=== PATIENT | female | born 1975 | race Caucasian/White ===

== ENCOUNTER 2020-03-28 13:46 | Emergency (ER) | payer OTHER ==
[~2020-03-28] VITALS: Ht 152.4 cm; Wt 68.9 kg
[~2020-03-28 13:46] MED LIST: [UNRECOGNIZED DRUG - REMARK]
--- NOTE | 2020-03-28 13:50 | NUR ---
PT TAKEN TO BED 11.
[2020-03-28 13:53] VITALS: BP 124/75
--- NOTE | 2020-03-28 13:59 | NUR ---
44 Y/O FEMALE C/O LEFT BREAST PAIN BELOW NIPPLE THAT BEGAN 3 DAYS AGO. DENIES ANY RECENT INJURY OR TRAUMA. PT STATES PAIN IS LOCALIZED RIGHT BELOW NIPPLE. DENIES ANY FEVER/ CHILLS/ N/V/D. NO PMH
[2020-03-28 14:43] VITALS: BP 124/75
== END 2020-03-28 14:43 | disposition home or self-care (01) ==
LOC: MED 13:46
DX: N63.0 Unspecified lump in unspecified breast (principal); Z79.899 Other long term (current) drug therapy; Z91.010 Allergy to peanuts
CPT/HCPCS: 81025; 99282

== ENCOUNTER 2021-06-12 08:32 | Day surgery (SDC) | payer OTHER ==
[~2021-06-12] VITALS: Ht 152.4 cm; Wt 70.3 kg
[2021-06-12] MEDS ORDERED: fentaNYL citrate 0.05 MG/ML VIAL ONE (09:08)
[2021-06-12] MEDS ORDERED: LIDOCAINE 2% 100 MG/5 ML UJET TP ONE (09:09)
[2021-06-12] MEDS ORDERED: MIDAZOLAM 5 MG/5 ML VIAL ONE (09:09)
[2021-06-12] MEDS ORDERED: MIDAZOLAM 2 MG/2 ML VIAL IVP ONE (10:45)
[2021-06-12] MEDS ORDERED: fentaNYL citrate 0.05 MG/ML VIAL IVP ONE (10:45)
== END 2021-06-12 11:03 | disposition home or self-care (01) ==
LOC: MDS 08:32 → MMU 08:32 → MDS 11:03
PROVIDERS: ATTEND Internal Medicine Gastroenterology
DX: Z12.11 Encounter for screening for malignant neoplasm of colon (principal); K57.30 Diverticulosis of large intestine without perforation or abscess without bleeding; K21.9 Gastro-esophageal reflux disease without esophagitis; Z79.899 Other long term (current) drug therapy
CPT/HCPCS: 43235; 45378; J2250; J3010